=== PATIENT | male | born 2000 | race Two or more races ===

== ENCOUNTER 2023-08-08 08:39 | Inpatient (IN) | payer MEDICAID, OTHER ==
[~2023-08-08] VITALS: Ht 175.3 cm; Wt 102.1 kg
[2023-08-08 10:00] VITALS: PULSE 73; RESP 18; O2SAT 99
[2023-08-08] MEDS: SODIUM CHLORIDE 0.9% 1,000 ML IV ONE ×2 (11:20→13:38)
[2023-08-08 11:36] LABS: Basophils # (auto) 0 10 ^3/uL (0-0.2); Basophils % (auto) 0.5 % (0.0-2.0); Eosinophils # (auto) 0.3 10 ^3/uL (0-0.8); Eosinophils % (auto) 4.1 % (0.0-7.0); Hematocrit 41.2 % (41.0-53.0); Hemoglobin 14.2 g/dL (13.5-17.5); Lymphocytes # (auto) 2.1 10 ^3/uL (0.4-5.4); Mean Corpuscular Hgb Conc. 34.4 g/dL (32.0-36.0); Mean Corpuscular Volume 87.4 fL (80.0-100.0); Monocytes # (auto) 0.8 10 ^3/uL (0-1.3); Monocytes % (auto) 10.7 % (0.0-12.0); Neutrophils # (auto) 4.4 10 ^3/uL (1.6-8.6); Neutrophils % (auto) 57.7 % (37.0-80.0); Nucleated Red Blood Cells % 0.1 %; Red Blood Cells 4.71 10^6/uL (4.5-5.90); Red Cell Distribution Width 12.8 % (11.8-14.3); White Blood Cell 7.7 10^3/uL (4.4-10.8)
[2023-08-08] MEDS: cefTRIAXone 1GM/50ML D5W 50 ML IV ONE (11:46)
[2023-08-08] MEDS: CLINDAMYCIN 600MG IV 50 ML IV ONE (11:57)
[2023-08-08 11:58] LABS: Alanine Aminotransferase 21 U/L (7-40); Albumin 4.7 g/dL (3.2-4.8); Alkaline Phosphatase 82 U/L (46-116); Anion Gap 8 (5-15); Aspartate Aminotransferase 16 U/L (13-40); BUN/Creatinine Ratio 11.1 (10.0-20.0); Bilirubin, Total 0.6 mg/dL (0.2-1.0); Blood Urea Nitrogen 8 mg/dL (9-23); Calcium 9.6 mg/dL (8.5-10.1); Carbon Dioxide 23 mmol/L (20-30); Chloride 106 mmol/L (98-107); Glucose 87 mg/dL (74-106); Potassium 4.1 mmol/L (3.5-5.1); Sodium 137 mmol/L (136-145); Total Protein 7.4 g/dL (5.7-8.2)
[2023-08-08] MEDS ORDERED: ONDANSETRON HCL 4 MG/2 ML VIAL IV PRN (12:45)
[2023-08-08] MEDS ORDERED: DOCUSATE SOD 100 MG CAP PO PRN (12:45)
[2023-08-08] MEDS ORDERED: MORPHINE SULFATE INJ 2 MG/ml SYRG IV PRN (12:45)
[2023-08-08] MEDS: SODIUM CHLORIDE 0.9% 1,000 ML IV SCH (13:52)
[2023-08-08] MEDS: CLINDAMYCIN 300MG IV 50 ML IV SCH (14:27)
[2023-08-08 17:43] VITALS: RESP 18
[2023-08-08 18:08] VITALS: BP 130/85; PULSE 69; RESP 12; TEMP 97.5; O2SAT 100
[2023-08-08 20:00] VITALS: BP 118/56; PULSE 64; PULSE 79; RESP 16; RESP 18; TEMP 97.6; O2SAT 96
[2023-08-08 22:00] VITALS: BP_SYST 117; BP_SYST 118; BP_DIAS 61; BP_DIAS 66; PULSE 64; PULSE 81; RESP 16; RESP 18; TEMP 98.2; TEMP 98.7; O2SAT 95; O2SAT 98
[2023-08-09] VITALS (7 sets, daily range): BP systolic 95–124; BP diastolic 53–66; PULSE 59–82; RESP 15–18; TEMP 97.8–98.7; O2SAT 93–98
[2023-08-09 06:29] LABS: Basophils # (auto) 0 10 ^3/uL (0-0.2); Basophils % (auto) 0.5 % (0.0-2.0); Eosinophils # (auto) 0.5 10 ^3/uL (0-0.8); Eosinophils % (auto) 6.6 % (0.0-7.0); Hematocrit 42.4 % (41.0-53.0); Hemoglobin 14.7 g/dL (13.5-17.5); Lymphocytes # (auto) 1.6 10 ^3/uL (0.4-5.4); Lymphocytes % (auto) 23.6 % (10.0-50.0); Mean Corpuscular Hemoglobin 30.4 pg (28.0-32.0); Mean Corpuscular Hgb Conc. 34.7 g/dL (32.0-36.0); Mean Corpuscular Volume 87.6 fL (80.0-100.0); Monocytes # (auto) 0.7 10 ^3/uL (0-1.3); Monocytes % (auto) 10.6 % (0.0-12.0); Neutrophils % (auto) 58.7 % (37.0-80.0); Red Blood Cells 4.85 10^6/uL (4.5-5.90); Red Cell Distribution Width 12.8 % (11.8-14.3); White Blood Cell 6.9 10^3/uL (4.4-10.8)
[2023-08-09 06:44] LABS: Alanine Aminotransferase 18 U/L (7-40); Albumin 4.6 g/dL (3.2-4.8); Alkaline Phosphatase 77 U/L (46-116); Anion Gap 5 (5-15); Aspartate Aminotransferase 12 U/L (13-40); BUN/Creatinine Ratio 11.8 (10.0-20.0); Bilirubin, Total 0.6 mg/dL (0.2-1.0); Blood Urea Nitrogen 9 mg/dL (9-23); Calcium 9.6 mg/dL (8.7-10.4); Carbon Dioxide 26 mmol/L (20-30); Chloride 106 mmol/L (98-107); Glucose 96 mg/dL (74-106); Potassium 4.1 mmol/L (3.5-5.1); Sodium 137 mmol/L (136-145); Total Protein 7.3 g/dL (5.7-8.2)
[2023-08-09] MEDS ORDERED: ONDANSETRON HCL 4 MG/2 ML VIAL IV PRN (13:15)
[2023-08-09] MEDS ORDERED: HYDROcodone-ACET 5/325MG TAB PO PRN (13:15)
[2023-08-09] MEDS ORDERED: ACETAMINOPHEN 500 MG TAB PO PRN (13:15)
[2023-08-09] MEDS: cefTRIAXone 1GM/50ML D5W 50 ML IV SCH (14:43)
[2023-08-10 05:00] VITALS: BP 117/66; PULSE 59; RESP 18; TEMP 98.5; O2SAT 99
[2023-08-10 07:16] LABS: Basophils # (auto) 0.1 10 ^3/uL (0-0.2); Eosinophils # (auto) 0.5 10 ^3/uL (0-0.8); Eosinophils % (auto) 6.9 % (0.0-7.0); Hematocrit 44.6 % (41.0-53.0); Lymphocytes # (auto) 1.7 10 ^3/uL (0.4-5.4); Lymphocytes % (auto) 22.6 % (10.0-50.0); Mean Corpuscular Hemoglobin 29.8 pg (28.0-32.0); Mean Corpuscular Hgb Conc. 33.7 g/dL (32.0-36.0); Mean Corpuscular Volume 88.5 fL (80.0-100.0); Monocytes # (auto) 0.8 10 ^3/uL (0-1.3); Monocytes % (auto) 10.3 % (0.0-12.0); Neutrophils # (auto) 4.4 10 ^3/uL (1.6-8.6); Neutrophils % (auto) 59.2 % (37.0-80.0); Red Blood Cells 5.04 10^6/uL (4.5-5.90); Red Cell Distribution Width 12.5 % (11.8-14.3); White Blood Cell 7.4 10^3/uL (4.4-10.8)
[2023-08-10 09:00] VITALS: BP_SYST 104; BP_SYST 121; BP_DIAS 57; BP_DIAS 68; PULSE 54; PULSE 74; RESP 22; RESP 54; TEMP 98.4; TEMP 98.6; O2SAT 92
[2023-08-10] MEDS ORDERED: VANCOMYCIN PER PHARMACY 0 MG IV SCH (10:30)
[2023-08-10] MEDS: VANCOMYCIN 1GM/200ML 200 ML IV ONE (11:30)
[2023-08-10 13:00] VITALS: BP 120/59; PULSE 39; RESP 18; TEMP 98.6; O2SAT 96
[2023-08-10] MEDS: VANCOMYCIN 1GM/200ML 200 ML IV SCH (16:38)
[2023-08-10 16:53] VITALS: BP 114/60; PULSE 59; RESP 16; TEMP 98.4; O2SAT 98
[2023-08-10 20:00] VITALS: PULSE 60; RESP 17
[2023-08-10 22:00] VITALS: BP 123/56; PULSE 61; RESP 15; TEMP 98.5; O2SAT 98
[2023-08-11 05:00] VITALS: BP 102/53; PULSE 74; RESP 18; TEMP 97.8; O2SAT 99
[2023-08-11 09:00] VITALS: BP 113/59; PULSE 68; RESP 19; TEMP 98.5; O2SAT 96
[2023-08-11 13:00] VITALS: BP 111/61; PULSE 77; RESP 19; TEMP 97.8; O2SAT 97
[2023-08-11] MEDS: VANCOMYCIN 1GM/200ML 200 ML IV SCH (13:19)
[2023-08-11 16:45] VITALS: BP 103/53; PULSE 70; RESP 21; TEMP 98; O2SAT 98
[2023-08-11 20:00] VITALS: PULSE 72; RESP 18; TEMP 36.7
[2023-08-11 22:00] VITALS: BP 121/53; PULSE 61; RESP 15; TEMP 98.5; O2SAT 98
[2023-08-12 04:55] VITALS: BP 124/67; PULSE 64; RESP 16; TEMP 97.3; O2SAT 99
[2023-08-12 08:10] VITALS: O2SAT 97
[2023-08-12 08:30] VITALS: BP 126/70; PULSE 80; RESP 18; TEMP 98.4; O2SAT 98
[2023-08-12] MEDS ORDERED: LEVO500T91 PO (12:50)
[2023-08-12 13:00] VITALS: BP 120/76; PULSE 76; RESP 17; TEMP 98; O2SAT 97
[2023-08-12] MEDS ORDERED: VANCOMYCIN 1GM/200ML 200 ML IV SCH (20:00)
== END 2023-08-12 14:30 | disposition home or self-care (01) | DRG 383 ==
LOC: ER 08:39 → OVERFLOW 12:41 → CENTRAL 13:39
PROVIDERS: ADMIT Nurse Practitioner Family; ATTEND Nurse Practitioner Acute Care
DX: L02.415 Cutaneous abscess of right lower limb (principal); L97.819 Non-pressure chronic ulcer of other part of right lower leg with unspecified severity; L03.115 Cellulitis of right lower limb; B95.62 Methicillin resistant Staphylococcus aureus infection as the cause of diseases classified elsewhere; E66.9 Obesity, unspecified; Z68.33 Body mass index [BMI] 33.0-33.9, adult
CPT/HCPCS: 36415; 73502; 73590; 80053; 80202; 82565; 83605; 85025; 87040; 87077; 87186; 87205; 96365; 96368; G0378; J3490